=== PATIENT | female | born 1960 ===

== ENCOUNTER 2020-02-28 15:02 | Emergency (ER) | payer OTHER ==
[~2020-02-28] VITALS: Ht 167.6 cm; Wt 55.6 kg
--- NOTE | 2020-02-28 15:45 | NUR ---
DR HUDSON IN ROOM SPEAKING W/ PT.
--- NOTE | 2020-02-28 16:01 | NUR ---
COVID + 2 WEEKS AGO. SX STARTED 02/09/20. WAS FEELING BETTER. C./O FATIGUE, HEAD CONGESTION, WHEEZING STARTED 2 WEEKS AGO. USED ALBUTEROL AND WIXELA INHALERS THIS MORNING. TOOK ADVIL 400MG THIS MORNING "FOR BURNING IN MY CHEST". DENIES CARDIAC HX. REPORTS EXPERIENCING SOB RECENTLY WHEN WALKING AND CARRYING GROCERIES. DIMINISHED SENSE OF SMELL & TASTE. DENIES FEVER.
[2020-02-28 16:07] VITALS: BP 116/71
[2020-02-28] MEDS ORDERED: FLUT1BLS9 INH (16:16)
[2020-02-28] MEDS ORDERED: ALBUTEROL (16:16)
--- NOTE | 2020-02-28 16:18 | NUR ---
CXR DONE, LABS DRAWN
[2020-02-28 16:44] LABS: ALBUMIN 4.2 g/dL (3.4-5.0); ANION GAP 6 mmol/L (5-15); CALCIUM 9.4 mg/dL (8.5-10.1); CHLORIDE 108 mmol/L (98-107); CREATININE 0.72 mg/dL (0.55-1.02)
[2020-02-28 16:45] LABS: BASOPHILS % (AUTO) 1 % (0-1); EOSINOPHILS % (AUTO) 0 % (1-7); LYMPHOCYTES % (AUTO) 32 % (22-44); MEAN CORPUSCULAR HEMOGLOBIN 31.6 pg (27.0-34.8); MEAN CORPUSCULAR HGB CONC 34.6 g/dL (32.4-35.8); MEAN PLATELET VOLUME 10.2 fL (7.4-10.4); MONOCYTES % (AUTO) 9 % (2-9); NEUTROPHILS % (AUTO) 58 % (42-75); PLATELET COUNT 204 x10^3/uL (130-400); RED BLOOD COUNT 4.12 x10^6/uL (3.82-5.3); RED CELL DISTRIBUTION WIDTH 12.8 % (9.6-15.2)
[2020-02-28 16:53] LABS: MD NO
== END 2020-02-28 17:44 | disposition home or self-care (01) ==
LOC: ED 17:22
DX: U07.1 COVID-19 (principal); J06.9 Acute upper respiratory infection, unspecified; R07.89 Other chest pain; I51.7 Cardiomegaly; J45.909 Unspecified asthma, uncomplicated
CPT/HCPCS: 36415; 71045; 80048; 82040; 85025; 93005; 99285

== ENCOUNTER 2020-12-03 14:59 | Outpatient (CLI) | payer OTHER ==
[~2020-12-03 14:59] MED LIST: ALBUTEROL; FLUT1BLS9 INH
== END 2020-12-03 23:59 | disposition home or self-care (01) ==
LOC: RAD 14:59
PROVIDERS: ATTEND Orthopaedic Surgery Foot and Ankle Surgery
DX: M79.662 Pain in left lower leg (principal)